=== PATIENT | female | born 1980 | race Caucasian/White ===

== ENCOUNTER 2020-09-02 17:07 | Inpatient (IN) | payer OTHER ==
[~2020-09-02] VITALS: Ht 172.7 cm; Wt 107.5 kg
[2020-09-02] MEDS ORDERED: METOPROLOL PO (17:10)
[2020-09-02] MEDS ORDERED: AMLODIPINE PO (17:10)
[2020-09-02] MEDS ORDERED: ASPIRIN PO (17:10)
[2020-09-02] MEDS ORDERED: ATORVASTATIN (17:10)
[2020-09-02] MEDS ORDERED: INSULIN (17:10)
[2020-09-02] MEDS ORDERED: LISINOPRIL PO (17:10)
[2020-09-02 17:45] LABS: BASOPHILS % 0.5 % (0.0-2.0); EOSINOPHILS % 2.4 % (0.0-5.0); HEMATOCRIT. 38.2 % (36.0-48.0); HEMOGLOBIN. 12.5 g/dL (12.0-16.0); LYMPHOCYTES % 18.8 % (20.0-50.0); MEAN CORPUSCULAR HEMOGLOBIN 28.6 pg (28.0-32.0); MEAN PLATELET VOLUME 7.7 fl (7.4-10.4); MONOCYTES % 5.1 % (2.0-8.0); NEUTROPHILS % 73.2 % (40.0-76.0); PLATELET 334 x1000/uL (130-400); RED BLOOD CELL COUNT 4.39 mill/uL (4.2-5.4); RED CELL DISTRIBUTION WIDTH 16.5 % (11.6-14.6)
[2020-09-02 17:56] LABS: CHLORIDE 103 mEq/L (98-107)
[2020-09-02] MEDS ORDERED: ONDANSETRON HCL 4MG/2ML INJ IV STA (18:15)
[2020-09-02] MEDS ORDERED: NITROGLYCERIN OINT 1GM/INCH UDPKT TD ONE (18:15)
[2020-09-02] MEDS ORDERED: MORPHINE SULFATE 4 MG/ML CPJ (NOT FOR IM USE) IV STA (18:15)
[2020-09-02] MEDS ORDERED: METOPROLOL TARTRATE 25MG TABLET PO SCH (21:00)
[2020-09-02] MEDS ORDERED: ACETAMINOPHEN 325MG TABLET PO PRN (21:00)
[2020-09-02] MEDS ORDERED: ONDANSETRON HCL 4MG/2ML INJ IV PRN (21:00)
[2020-09-02] MEDS: ASPIRIN 81MG TABLET PO SCH (21:00)
[2020-09-02] MEDS ORDERED: ENOXAPARIN 40MG/0.4ML SYR SUBCUT SCH (22:00)
[2020-09-02 22:21] LABS: *AMPHETAMINES SCREEN URINE NEGATIVE (NEGATIVE); *BARBITURATES SCREEN URINE NEGATIVE (NEGATIVE); *COCAINE SCREEN URINE NEGATIVE (NEGATIVE); CANNABINOID URINE SCREEN NEGATIVE (NEGATIVE)
[2020-09-02 22:22] LABS: *BENZODIAZEPINES SCREEN URINE NEGATIVE (NEGATIVE); METHADONE URINE SCREEN NEGATIVE (NEGATIVE); OPIATES URINE SCREEN NEGATIVE (NEGATIVE); PHENCYCLIDINE URINE SCREEN NEGATIVE (NEGATIVE)
[2020-09-03] VITALS (15 sets, daily range): BP systolic 108–150; BP diastolic 56–88
[2020-09-03] MEDS ORDERED: MORPHINE SULFATE 2 MG/ML CPJ (NOT FOR IM USE) IV PRN (03:00)
[2020-09-03] MEDS ORDERED: DEXTROSE 50% WATER 50ML SYRINGE IV PRN (03:15)
[2020-09-03] MEDS: BLOOD SUGAR DIAGNOSTIC STRIP TEST SCH ×4 (06:48→21:49)
[2020-09-03] MEDS: INSULIN LISPRO 100 UNITS/ML SUBCUT SCH ×4 (07:15→22:00)
[2020-09-03] MEDS: ASPIRIN 81MG TABLET PO SCH (09:41)
[2020-09-03] MEDS: AMLODIPINE 5MG TABLET PO SCH ×2 (09:41→22:01)
[2020-09-03] MEDS: LISINOPRIL 2.5MG TABLET PO SCH ×2 (09:41→22:00)
[2020-09-03] MEDS: METOPROLOL TARTRATE 25MG TABLET PO SCH ×2 (09:42→22:01)
[2020-09-03] MEDS ORDERED: NITROGLYCERIN 50MCG/ML 10ML VIAL (CATH LAB) IV ONE (10:30)
[2020-09-03] MEDS ORDERED: NICARDIPINE 100MCG/ML 10ML VIAL (CATH LAB) IV ONE (10:30)
[2020-09-03] MEDS ORDERED: HEPARIN SODIUM 1,000 UNIT/1ML VIAL IV ONE (10:30)
[2020-09-03] MEDS ORDERED: FENTANYL CITRATE/PF 50MCG/ML 5ML VIAL ONE (10:37)
[2020-09-03] MEDS ORDERED: LIDOCAINE HCL 1% 20ML VIAL (Pyxis) INJ ONE (10:38)
[2020-09-03] MEDS ORDERED: IODIXANOL 320MG/ML 100 ML BOTTLE IV ONE (10:38)
[2020-09-03] MEDS ORDERED: MIDAZOLAM HCL 5 MG/5 ML VIAL ONE (10:38)
[2020-09-03] MEDS ORDERED: VERAPAMIL HCL 2.5 MG/1 ML 2ML VIAL IV ONE (10:39)
[2020-09-03 12:15] LABS: HCG SCREEN NEGATIVE
[2020-09-03] MEDS ORDERED: FENTANYL CITRATE/PF 50MCG/ML 2ML VIAL ONE (13:19)
[2020-09-03] MEDS ORDERED: MIDAZOLAM HCL 2 MG/2 ML VIAL ONE (13:19)
[2020-09-03] MEDS ORDERED: IOHEXOL-300 100 ML BOTTLE ONE (14:22)
[2020-09-03] MEDS ORDERED: CLOPIDOGREL 75MG TABLET ONE (14:39)
[2020-09-03] MEDS ORDERED: ACETAMINOPHEN 325MG TABLET PO PRN (14:45)
[2020-09-03] MEDS ORDERED: ATROPINE SULFATE 1MG/10ML SYR IV PRN (14:45)
[2020-09-03] MEDS ORDERED: SODIUM CHLORIDE 0.45% 500 ML IV SCH (15:00)
[2020-09-03] MEDS: ISOSORBIDE MONONITRATE 30MG TABLET SR 24HR PO SCH (20:20)
[2020-09-03] MEDS ORDERED: ENOXAPARIN 30MG/0.3ML SYR SUBCUT SCH (21:00)
[2020-09-03] MEDS ORDERED: ATORVASTATIN CALCIUM 40MG TABLET PO SCH (22:30)
[2020-09-03] MEDS: FAMOTIDINE 20MG TABLET PO SCH (23:50)
[2020-09-03] MEDS: DOCUSATE SODIUM 250MG CAPSULE PO SCH (23:50)
[2020-09-04] VITALS (9 sets, daily range): BP systolic 97–130; BP diastolic 59–80
[2020-09-04] MEDS: BLOOD SUGAR DIAGNOSTIC STRIP TEST SCH ×2 (06:30→11:50)
[2020-09-04 07:27] LABS: CHLORIDE 103 mEq/L (98-107)
[2020-09-04 07:47] LABS: BASOPHILS % 0.4 % (0.0-2.0); EOSINOPHILS % 2.8 % (0.0-5.0); HEMATOCRIT. 32.4 % (36.0-48.0); HEMOGLOBIN. 10.7 g/dL (12.0-16.0); MEAN CORPUSCULAR HEMOGLOBIN 28.7 pg (28.0-32.0); MEAN CORPUSCULAR VOLUME 86.6 fL (81.0-99.0); MEAN PLATELET VOLUME 7.6 fl (7.4-10.4); MONOCYTES % 7.4 % (2.0-8.0); NEUTROPHILS % 70.4 % (40.0-76.0); PLATELET 304 x1000/uL (130-400); RED BLOOD CELL COUNT 3.74 mill/uL (4.2-5.4); RED CELL DISTRIBUTION WIDTH 16.3 % (11.6-14.6)
[2020-09-04] MEDS: INSULIN LISPRO 100 UNITS/ML SUBCUT SCH ×2 (08:12→12:59)
[2020-09-04] MEDS: DOCUSATE SODIUM 250MG CAPSULE PO SCH (08:13)
[2020-09-04] MEDS: FAMOTIDINE 20MG TABLET PO SCH (08:13)
[2020-09-04] MEDS: ISOSORBIDE MONONITRATE 30MG TABLET SR 24HR PO SCH (08:14)
[2020-09-04] MEDS: ASPIRIN 81MG TABLET PO SCH (08:14)
[2020-09-04] MEDS: AMLODIPINE 5MG TABLET PO SCH (08:14)
[2020-09-04] MEDS: METOPROLOL TARTRATE 25MG TABLET PO SCH (09:00)
[2020-09-04] MEDS: LISINOPRIL 2.5MG TABLET PO SCH (09:00)
[2020-09-04] MEDS ORDERED: CLOPIDOGREL 75MG TABLET PO SCH (09:00)
== END 2020-09-04 14:45 | disposition home or self-care (01) | DRG 251 ==
LOC: EDBD 17:07 → ER 17:07 → MICUSO 19:15 → EDBEDREQ 19:24 → EDBEDREQTM 19:24 → 5WST 09-03 00:42 → 3WST 09-03 14:55
PROVIDERS: ADMIT Internal Medicine; ATTEND Internal Medicine
PROC: 02703ZZ Dilation of Coronary Artery, One Artery, Percutaneous Approach (ICD-10-PCS; principal; 2020-09-03)
PROC: 4A023N7 Measurement of Cardiac Sampling and Pressure, Left Heart, Percutaneous Approach (ICD-10-PCS; 2020-09-03)
PROC: B211YZZ Fluoroscopy of Multiple Coronary Arteries using Other Contrast (ICD-10-PCS; 2020-09-03)
PROC: 4A033BC Measurement of Arterial Pressure, Coronary, Percutaneous Approach (ICD-10-PCS; 2020-09-03)
PROC: B41FYZZ Fluoroscopy of Right Lower Extremity Arteries using Other Contrast (ICD-10-PCS; 2020-09-03)
DX: T82.855A Stenosis of coronary artery stent, initial encounter (principal); I25.110 Atherosclerotic heart disease of native coronary artery with unstable angina pectoris; E87.1 Hypo-osmolality and hyponatremia; E66.9 Obesity, unspecified; I49.3 Ventricular premature depolarization; Y84.0 Cardiac catheterization as the cause of abnormal reaction of the patient, or of later complication, without mention of misadventure at the time of the procedure; E78.00 Pure hypercholesterolemia, unspecified; I10 Essential (primary) hypertension; E11.9 Type 2 diabetes mellitus without complications; E78.5 Hyperlipidemia, unspecified; Z20.822 Contact with and (suspected) exposure to COVID-19; Z95.5 Presence of coronary angioplasty implant and graft; Z90.49 Acquired absence of other specified parts of digestive tract; Z79.899 Other long term (current) drug therapy; Z79.84 Long term (current) use of oral hypoglycemic drugs; Z79.82 Long term (current) use of aspirin; Z71.3 Dietary counseling and surveillance; Z79.02 Long term (current) use of antithrombotics/antiplatelets; Y92.89 Other specified places as the place of occurrence of the external cause; Z68.36 Body mass index [BMI] 36.0-36.9, adult
CPT/HCPCS: 36415; 71045; 80048; 80053; 80061; 80305; 82962; 83036; 83880; 84443; 84484; 84703; 85025; 85347; 87426; 92920; 93005; 93306; 93458; 93571; 99285; C1760; C1769; C1887; C1893; J1644; J1650; J1815; J2250; J2270; J2405; J3010; J3490; Q9967